=== PATIENT | female | born 1975 | race Caucasian/White ===

== ENCOUNTER 2018-11-04 17:54 | Observation (INO) ==
[2018-11-04] MEDS ORDERED: ONDANSETRON 4 MG/2 ML VIAL IV ONE (20:02)
[2018-11-04] MEDS ORDERED: SODIUM CHLORIDE 0.9% 1,000 ML IV STA (20:02)
[2018-11-04] MEDS ORDERED: MORPHINE 4 MG/1 ML VIAL IV ONE (20:02)
[2018-11-04 21:11] LABS: Basophils % 0.5 % (0.0-0.8); Eosinophils # 0.3 10*3/uL (0.0-0.87); Eosinophils % 3.5 % (0.00-10.9); Hematocrit 37.8 VOL% (35.7-47.0); Hemoglobin 12.5 GM/DL (12.0-16.0); Immature Granulocytes % 0.7 %; Immature Granulocytes Absolute 0.06 #; Lymphocytes # 1.6 10*3/uL (1.4-4.0); Lymphocytes % 17.5 % (21.3-54.2); Mean Corpuscular HGB Conc 33.1 GM/DL (32-36); Mean Corpuscular Hemoglobin 30 PG (27-34); Mean Corpuscular Volume 90.9 FL (87-102); Mean Platelet Volume 8.6 FL (9.6-12.0); Monocytes # 0.8 10*3/uL (0.11-0.8); Monocytes % 8.6 % (1.7-12.7); Neutrophils # 6.1 10*3/uL (1.4-7.4); Neutrophils % 69.2 % (38.7-73.9); Platelet Count 297 T/CUMM (130-400); Red Blood Count 4.16 MC/CUMM (3.8-5.5); Red Cell Distribution Width 13.4 % (9.3-17.3); White Blood Count 8.8 T/CUMM (4-12)
[2018-11-04 21:16] LABS: INR 0.9
[2018-11-04 21:33] LABS: Alanine Aminotransferase 144 U/L (13-56); Albumin 3.1 G/DL (3.4-5.0); Alkaline Phosphatase 99 U/L (45-117); Aspartate Amino Transferase 103 U/L (0-37); Bilirubin,Total < 0.39 MG/DL (0.2-1.0); Blood Urea Nitrogen 9 MG/DL (7-18); Calcium 8.7 MG/DL (8.5-10.1); Glucose 93 MG/DL (74-106); Sodium 136 MMOL/L (136-145); Total Protein 6.9 G/DL (6.4-8.3)
[2018-11-04] MEDS ORDERED: CLINDAMYCIN INJ 600 MG in PREMIX 1 EACH IV STA (23:18)
[2018-11-04] MEDS ORDERED: KETOROLAC 30 MG/1 ML VIAL IV ONE (23:23)
[2018-11-05] MEDS ORDERED: ONDANSETRON 4 MG/2 ML VIAL IV PRN (00:04)
[2018-11-05] MEDS ORDERED: diphenhydrAMINE CAP 25 MG CAPSULE PO PRN (00:04)
[2018-11-05] MEDS ORDERED: NICOTINE 21 MG/24 HR PATCH TRANSDERM PRN (00:04)
[2018-11-05] MEDS ORDERED: ACETAMINOPHEN 325 MG TABLET PO PRN (00:04)
[2018-11-05] MEDS: SODIUM CHLORIDE 0.9% 1,000 ML IV SCH ×3 (03:11→17:38)
[2018-11-05] MEDS: VANCOMYCIN INJ 1,000 MG in SODIUM CHLORIDE 0.9% 250 ML IV SCH ×2 (03:12→14:39)
[2018-11-05 06:06] LABS: Basophils # 0.1 10*3/uL (0.0-0.2); Basophils % 0.6 % (0.0-0.8); Eosinophils # 0.5 10*3/uL (0.0-0.87); Hematocrit 40.2 VOL% (35.7-47.0); Hemoglobin 12.8 GM/DL (12.0-16.0); Immature Granulocytes % 0.4 %; Immature Granulocytes Absolute 0.04 #; Lymphocytes # 2.6 10*3/uL (1.4-4.0); Lymphocytes % 26.9 % (21.3-54.2); Mean Corpuscular HGB Conc 31.8 GM/DL (32-36); Mean Corpuscular Hemoglobin 29 PG (27-34); Mean Corpuscular Volume 91.6 FL (87-102); Mean Platelet Volume 8.7 FL (9.6-12.0); Monocytes % 10.7 % (1.7-12.7); Neutrophils # 5.4 10*3/uL (1.4-7.4); Neutrophils % 56.4 % (38.7-73.9); Platelet Count 316 T/CUMM (130-400); Red Blood Count 4.39 MC/CUMM (3.8-5.5); Red Cell Distribution Width 13.4 % (9.3-17.3); White Blood Count 9.6 T/CUMM (4-12)
[2018-11-05 07:35] LABS: Calcium 8.4 MG/DL (8.5-10.1); Potassium 3.7 MMOL/L (3.5-5.1)
[2018-11-05] MEDS: CLINDAMYCIN INJ 600 MG in PREMIX 1 EACH IV SCH ×2 (09:06→17:39)
[2018-11-05] MEDS: MORPHINE 4 MG/1 ML VIAL IV PRN ×2 (09:06→14:39)
[2018-11-05] MEDS: PANTOPRAZOLE 40 MG TABLET PO SCH (09:07)
[2018-11-05 09:25] LABS: Hepatitis A Ab IgM Quant 0.13 Index; Hepatitis A Ab IgM Result Negative (Negative); Hepatitis B Core IgM Quant 0.06 Index; Hepatitis B Core IgM Result Negative (Negative); Hepatitis B Surface Ag Quant < 0.10 Index; Hepatitis B Surface Ag Result Negative (Negative); Hepatitis C Virus Ab Quant < 0.02 Index; Hepatitis C Virus Ab Result Negative (Negative)
[2018-11-05] MEDS ORDERED: IBUPROFEN 600 MG TABLET PO PRN (10:43)
[2018-11-05] MEDS: NICOTINE 21 MG/24 HR PATCH TRANSDERM SCH (11:31)
[2018-11-05] MEDS ORDERED: KETOROLAC 60 MG/2 ML VIAL IM PRN (20:12)
[2018-11-06] MEDS: CLINDAMYCIN INJ 600 MG in PREMIX 1 EACH IV SCH ×2 (00:06→09:30)
[2018-11-06] MEDS: VANCOMYCIN INJ 1,000 MG in SODIUM CHLORIDE 0.9% 250 ML IV SCH (02:12)
[2018-11-06] MEDS: SODIUM CHLORIDE 0.9% 1,000 ML IV SCH (02:13)
[2018-11-06 05:06] LABS: Basophils # 0.1 10*3/uL (0.0-0.2); Basophils % 0.9 % (0.0-0.8); Eosinophils # 0.5 10*3/uL (0.0-0.87); Eosinophils % 8.9 % (0.00-10.9); Hematocrit 34.3 VOL% (35.7-47.0); Hemoglobin 10.9 GM/DL (12.0-16.0); Immature Granulocytes % 0.9 %; Immature Granulocytes Absolute 0.05 #; Lymphocytes # 2.3 10*3/uL (1.4-4.0); Lymphocytes % 39.3 % (21.3-54.2); Mean Corpuscular HGB Conc 31.8 GM/DL (32-36); Mean Corpuscular Hemoglobin 29 PG (27-34); Mean Corpuscular Volume 91.7 FL (87-102); Mean Platelet Volume 8.8 FL (9.6-12.0); Monocytes # 0.7 10*3/uL (0.11-0.8); Monocytes % 12.3 % (1.7-12.7); Neutrophils # 2.2 10*3/uL (1.4-7.4); Neutrophils % 37.7 % (38.7-73.9); Platelet Count 292 T/CUMM (130-400); Red Blood Count 3.74 MC/CUMM (3.8-5.5); Red Cell Distribution Width 13.8 % (9.3-17.3); White Blood Count 5.8 T/CUMM (4-12)
[2018-11-06 05:24] LABS: Calcium 8.2 MG/DL (8.5-10.1); Osmolality,Calculated 279.3 MOS/KG (273-304); Potassium 3.8 MMOL/L (3.5-5.1)
[2018-11-06 05:56] LABS: Anisocytosis 1+; Eosinophils 9 % (0-10); Lymphocytes 46 % (20-55); Platelet Estimate Adequate; Segmented Neutrophils 40 % (50-85); Total Cells Counted 100
[2018-11-06] MEDS ORDERED: NON-FORMULARY MEDICATION (Omeprazole [Omeprazole] 40 MG) PO SCH (09:00)
[2018-11-06] MEDS: NICOTINE 21 MG/24 HR PATCH TRANSDERM SCH (09:33)
[2018-11-06] MEDS: PANTOPRAZOLE 40 MG TABLET PO SCH (09:33)
[2018-11-06 09:40] VITALS: BP 88/59
== END 2018-11-06 12:00 | disposition home or self-care (01) ==
LOC: N.EDINP 17:54 → N.ED 17:54 → SUATTDRO 11-05 00:04 → N.5E 11-05 01:45
PROVIDERS: ADMIT Internal Medicine; ATTEND Internal Medicine Geriatric Medicine